=== PATIENT | female | born 1935 | race Caucasian/White ===

== ENCOUNTER 2016-07-21 10:08 | Emergency (ER) | payer MEDICARE, BC ==
[2016-07-21 10:43] LABS: Urine Bilirubin Negative (NEGATIVE); Urine Blood 25 /ul (NEGATIVE); Urine Ketone Negative (NEGATIVE); Urine Nitrite Negative (NEGATIVE); Urine Protein Negative (NEGATIVE); Urine Specific Gravity 1.015 SP.GR. (1.005-1.010); Urine Urobilinogen Normal (NORMAL); Urine pH 6.5 pH (5.0-7.0)
[2016-07-21] MEDS ORDERED: NORMAL SALINE 1,000 ML IV ONE (10:53)
[2016-07-21] MEDS ORDERED: ONDANSETRON HCL/PF 2 MG/ML VIAL IV ONE (10:53)
[2016-07-21] MEDS ORDERED: ONDANSETRON HCL/PF 2 MG/ML VIAL ONE (10:55)
--- NOTE | 2016-07-21 11:02 | ERNOTE ---
Medical Problem HPI - Narrative Date of Service: 07/21/16 - General Chief Complaint: Nausea/Vomiting Time Seen by Provider: 07/21/16 10:43 Source: patient, family, RN notes reviewed, old records Exam Limitations: no limitations - Immun/Allergies/Home Medications Immunizations: IMMUNIZATION HX Immunizations Up to Date Yes History of Influenza Vaccine Yes Allergies/Adverse Reactions: Allergies Penicillins Allergy (Verified 07/21/16 10:22) Sulfa (Sulfonamide Antibiotics) Allergy (Verified 07/21/16 10:22) Home Medications: HOME MEDICATIONS Albuterol Sulfate [Ventolin Hfa] 2 puff IH Q4H PRN 03/18/16 [Last Taken Unknown] Atenolol [Tenormin] 100 mg PO BID 03/18/16 [Last Taken Unknown] Clopidogrel Bisulfate [Plavix] 75 mg PO DAILY 03/18/16 [Last Taken Unknown] Fluticasone Propionate [Flovent Hfa] 2 puff IH BID 03/18/16 [Last Taken Unknown] Furosemide [Lasix] 60 mg PO DAILY 03/18/16 [Last Taken Unknown] Gemfibrozil [Lopid] 600 mg PO BID 03/18/16 [Last Taken Unknown] Glipizide 10 mg PO BID 03/18/16 [Last Taken Unknown] Omeprazole 20 mg PO DAILY 03/18/16 [Last Taken Unknown] Pioglitazone HCl 30 mg PO DAILY 03/18/16 [Last Taken Unknown] Pravastatin Sodium [Pravachol] 40 mg PO HS 03/18/16 [Last Taken Unknown] Ondansetron [Zofran Odt] 8 mg PO Q8H PRN #12 tab 07/21/16 [Last Taken Unknown] - History of Present History Narrative: Aydee is a 80 year old female brought to the ED by ambulance after a sudden onset of severe dizziness and vomiting. She reports waking up around 0300 this morning to go the the bathroom. She states she did not feel quite right at that time. She proceeded to go to her hair appointment this morning where she then became ill. She recently began having significantly more lower extremity edema than normal. This was determined to be related to moving into a different house with a water softener and having salt added to the water. Her lasix was increased on Sunday of this week and the edema improved. She was hospitalized last fall for vertigo , which she reports was similar to her current symptoms. She denies any sick contacts. She denies any diarrhea and states she had a normal bowel movement earlier this morning. Review of Systems - Review of Systems Constitutional: Present: malaise. Absent: recent illness, fever, chills EYE: Absent: blurred vision, double vision ENT: Absent: ear pain, nose congestion, sore throat Respiratory: Absent: shortness of breath, cough Cardiology: Present: edema. Absent: chest pain, palpitations, syncope Gastrointestinal/Abdominal: Present: nausea, vomiting, abdominal pain. Absent: diarrhea, constipation Genitourinary: Present: frequency. Absent: dysuria Musculoskeletal: Present: no symptoms reported Neurological: Present: headache, dizziness/light-headedness. Absent: weakness, numbness, pre-existing deficit Endocrine: Present: no symptoms reported Hematologic/Lymphatic: Absent: easy bruising, easy bleeding Psych: Present: no symptoms reported - Patient's Past Medical History Patient History - Medical: Diabetes Type 2, Obesity Patient History - Cardiac/Respiratory: Coronary Heart Disease, COPD, Hypertension, Hyperlipidemia, TIA Patient History - Cancer: No Hx of Cancer Patient History - Surgical Procedures: Cardiac stent, Hysterectomy, T & A, Other Patient History - Other: None LMP (females 10-50): Menopausal - Family History Mother Family History - Medical: Diabetes Type 2 - Social History Living Situations: spouse Abuse History: No History of abuse Psych History: No pertinent hx Does anyone smoke in the home?: No Smoking Status: Never smoker Alcohol Use: none Drug Use: none - Immunizations Immunizations Up to Date: Yes Hx Pneumococcal Vaccination: No History of Influenza Vaccine: Yes Physical Exam - Physical Exam General Appearance: Present: wd/wn, alert, mild distress, obese Eye Exam: Normal inspection: bilateral, PERRL: bilateral Ears, Nose, Throat: Present: hearing grossly normal Neck: Present: normal inspection, nontender, supple Respiratory: Present: no respiratory distress, normal breath sounds, no accessory muscle use, lungs clear Cardiovascular/Chest: Present: regular rate, rhythm, no murmur. Absent: normal peripheral pulses Peripheral Pulses: N=norm/S=strong/W=weak/B=bound/A=absent: Dorsalis-pedis (R): Weak, Dorsalis-pedis (L): Weak Gastrointestinal/Abdominal: Present: normal bowel sounds, soft, tenderness - diffuse throughout the right side, distended - obese Extremity Exam: Present: normal range of motion, pedal edema - mild, bilateral to just above ankles Neurological Exam: Present: alert, oriented, normal mood/affect, no motor/ sensory deficits Skin Exam: Present: warm/dry, pallor ED Progress - Results and Orders Patient's Lab Results:: I have reviewed the patient's lab results. - Vital Signs Patient's Vital Signs:: I have reviewed the patient's vital signs. Vital Signs: Vital Signs 07/21/16 07/21/16 10:11 10:47 Temperature 36.2 C L Pulse Rate 60 Respiratory 20 Rate Blood Pressure 112/58 O2 Sat by Pulse 95 Oximetry - Progress/Reassessment Chief Complaint: Nausea/Vomiting Progress:: Improved Plan - Plan Plan: Patient is feeling better after IVF bolus and Zofran. No further n/v. Reports mild dizziness, but states much better than earlier today. Unclear if symptoms are d/t viral illness or if this is another bout of the vertigo patient experienced last fall. Instructed to contact PCP on Sunday if she is still having dizziness and discussed possible vestibular rehab therapy. Rx for Zofran ODT prn. Departure - Departure Clinical Impression: Dizziness Vomiting Qualifiers: Vomiting type: unspecified Vomiting Intractability: non-intractable Nausea presence: with nausea Qualified Code(s): R11.2 - Nausea with vomiting, unspecified Disposition: Home Follow Up Needed Condition: Stable Instructions: Dizziness, [id number] Additional Instructions: Return to ER if symptoms worsen If dizziness persists, contact your doctor on Sunday Referrals: Mecca Iniguez MD [Staff Physician] - Prescriptions: Ondansetron [Zofran Odt] 8 mg PO Q8H PRN #12 tab PRN Reason: Nausea
[2016-07-21 11:11] LABS: Hematocrit 38.5 % (37.0-47.0); Hemoglobin 12.6 gm/dL (12.5-16.0); Mean Cell Volume 93.7 fl (78-100); Mean Corpuscular Hemoglobin 30.7 pg (27-31); Mean Corpuscular Hgb Conc 32.7 g/dl (32-36); Mean Platelet Volume 9.7 fl (6.0-9.5); Neutrophil # 4.2 K/mm3 (1.3-6.0); Neutrophil % 59.1 % (42-75.0); Platelet Count 226 K/mm3 (150-450); Red Blood Count 4.11 M/mm3 (4.2-5.4); Red Cell Distribution Width 13.1 % (11.5-14.0)
[2016-07-21 11:14] LABS: Urine Appearance Cloudy; Urine Color Yellow; Urine WBC None Seen /hpf (0-5)
[2016-07-21 11:15] LABS: Urine Bacteria None Seen; Urine Other Crystal TRACE /hpf; Urine RBC 0-5 /hpf (0-5)
--- OUTSIDE RECORDS SUMMARY | 2016-07-21 11:20 | XMS REPORT | Continuity of Care Document ---
:1935 Author Organization ([facility]) Address [address] [place] [address] Phone [phone] Care Team Providers Name Role Phone Unavailable Primary Care Provider Unavailable Source Comments This disclosure is being made pursuant to the Care Everywhere program, applicable federal and state laws, and may not contain all informaitonavailable regarding this patient. ([facility]) Active Allergies and Adverse Reactions Not on File Current Medications Not on file Active Problems Not on file Social History Tobacco Use Types Packs/Day Years Used Date Never Assessed Plan of Care Health Maintenance Due Date Last Done Comments Hepatitis B Vaccine (1 of 3 - Primary Series) 1935 Tdap Vaccine 1947 Lipid Disorder Screening 1954 Td Vaccine 1954 Mammogram 1976 Colonoscopy 1986 Zoster Vaccine 1996 Osteoporosis Screening (DXA Bone Density) 2001 Pneumococcal Vaccine (1 of 2 - PCV13) 2001 Influenza Vaccine: Seasonal (#1) 01/10/2016 Results from Last 3 Months Not on file
[2016-07-21 11:24] VITALS: BP 132/44
[2016-07-21 11:33] LABS: Albumin * 3.6 gm/dl (3.4-5.0); Anion Gap 10.4 mmol/L (6.8-13.8); Bilirubin, Total 0.5 mg/dL (0.0-1.1); Ca. Corrected For Albumin 9.2 mg/dL (8.4-10.2); Calcium * 9.2 mg/dL (7.9-10.9); Carbon Dioxide 33.3 mmol/L (24-32.6); Potassium 3.7 mmol/L (3.4-4.6); Total Protein 7.4 gm/dL (6.2-8.2)
[2016-07-21] MEDS ORDERED: ACETAMINOPHEN 325 MG TABLET PO ONE (11:45)
[2016-07-21] MEDS ORDERED: ACETAMINOPHEN 325 MG TABLET ONE (11:46)
== END 2016-07-21 13:04 | disposition home or self-care (01) ==
LOC: ER 10:08
DX: R42 Dizziness and giddiness (principal); R11.2 Nausea with vomiting, unspecified

== ENCOUNTER 2017-01-01 22:15 | Emergency (ER) | payer MEDICARE, BC ==
--- NOTE | 2017-01-01 23:04 | ERNOTE ---
Lower Extremity HPI - General Lower Extremities Pain: leg: left - increased swelling and pain Time Seen by Provider: 01/01/17 22:58 Source: patient Exam Limitations: no limitations - Immun/Allergies/Home Medications Immunizations: IMMUNIZATION HX Immunizations Up to Date Yes History of Influenza Vaccine Yes Hx Pneumococcal Vaccination No Allergies/Adverse Reactions: Allergies Allergy/AdvReac Type Severity Reaction Status Date / Time Penicillins Allergy Verified 07/21/16 10:22 Sulfa (Sulfonamide Allergy Verified 07/21/16 10:22 Antibiotics) Home Medications: HOME MEDICATIONS Albuterol Sulfate [Ventolin Hfa] 2 puff IH Q4H PRN 03/18/16 [Last Taken Unknown] Atenolol [Tenormin] 100 mg PO BID 03/18/16 [Last Taken Unknown] Clopidogrel Bisulfate [Plavix] 75 mg PO DAILY 03/18/16 [Last Taken Unknown] Fluticasone Propionate [Flovent Hfa] 2 puff IH BID 03/18/16 [Last Taken Unknown] Furosemide [Lasix] 60 mg PO DAILY 03/18/16 [Last Taken Unknown] Gemfibrozil [Lopid] 600 mg PO BID 03/18/16 [Last Taken Unknown] Omeprazole 20 mg PO DAILY 03/18/16 [Last Taken Unknown] Pioglitazone HCl 30 mg PO DAILY 03/18/16 [Last Taken Unknown] Pravastatin Sodium [Pravachol] 40 mg PO HS 03/18/16 [Last Taken Unknown] glipiZIDE [Glipizide] 10 mg PO BID 03/18/16 [Last Taken Unknown] Ondansetron [Zofran Odt] 8 mg PO Q8H PRN #12 tab 07/21/16 [Last Taken Unknown] - History of Present Illness Narrative: pt has been riding in the car for the past 2 days and only stopped approx 2 times each day to walk. both legs swollen a little more than usual but left much more than right Occurred: yesterday Method of Injury: Reports: other - long car ride Modifying Factors - (Worsens): Reports: movement Review of Systems - Review of Systems Constitutional: Absent: recent illness EYE: Present: no symptoms reported ENT: Present: no symptoms reported Respiratory: Absent: shortness of breath Cardiology: Absent: chest pain Gastrointestinal/Abdominal: Present: no symptoms reported Genitourinary: Present: no symptoms reported Musculoskeletal: Present: no symptoms reported Skin: Present: no symptoms reported Neurological: Present: no symptoms reported Endocrine: Present: no symptoms reported Hematologic/Lymphatic: Present: no symptoms reported Psych: Present: no symptoms reported - Patient's Past Medical History Patient History - Medical: Diabetes Type 2, Obesity Patient History - Cardiac/Respiratory: Coronary Heart Disease, CHF, COPD, Hypertension, Hyperlipidemia, TIA Patient History - Cancer: No Hx of Cancer Patient History - Surgical Procedures: Cardiac stent, Hysterectomy, T & A, Other Patient History - Other: None - Family History Mother Family History - Medical: Diabetes Type 2 - Social History Living Situations: home Abuse History: No History of abuse Psych History: No pertinent hx Does anyone smoke in the home?: No Smoking Status: Never smoker Alcohol Use: none Drug Use: none - Immunizations Immunizations Up to Date: Yes Hx Pneumococcal Vaccination: No History of Influenza Vaccine: Yes Physical Exam - Physical Exam General Appearance: Present: wd/wn, alert, mild distress Head Exam: Present: normal inspection, no evidence of injury Ears, Nose, Throat: Present: normal ENT inspection Respiratory: Present: no respiratory distress, no accessory muscle use, lungs clear Cardiovascular/Chest: Present: regular rate, rhythm, no murmur Back Exam: Present: normal inspection, normal range of motion Extremity Exam: Present: extremity edema - left > right left calf 55 cm right calf 47 cm Neurological Exam: Present: alert, oriented, normal mood/affect Skin Exam: Present: normal color, warm/dry ED Progress - Results and Orders Patient's Lab Results:: I have reviewed the patient's lab results. Results and Orders: Laboratory Tests 01/01/17 01/01/17 01/01/17 23:15 23:15 23:15 WBC 6.1 Hgb 11.8 L Hct 36.4 L Plt Count 241 D-Dimer 0.99 H Sodium 145 H Potassium 3.7 Chloride 105 Carbon Dioxide 30.1 Anion Gap 13.6 BUN 30 H Creatinine 1.69 H Est GFR (Non-Af Amer) 31 L D Random Glucose 185 H Calcium 8.7 B-Natriuretic Peptide 536 - Vital Signs Patient's Vital Signs:: I have reviewed the patient's vital signs. Vital Signs: Vital Signs 01/01/17 22:31 Temperature 36.5 C Pulse Rate 58 L Respiratory 18 Rate Blood Pressure 155/66 O2 Sat by Pulse 95 Oximetry - CT/Ultrasound CT/Ultrasound Narrative: LEFT LEG VENOUS DOPPLER: Findings: Exam shows good compressibility, adequate venous waveform, normal augmentation, and adequate color Doppler signal throughout. No intraluminal thrombus identified. Findings conveyed to emergency room personnel at 0113 hours by [facility]. IMPRESSION: NO DVT. Electronically signed by Jerome Mcwilliams M.D.. - Progress/Reassessment Chief Complaint: Lower Extremity Pain/ Injury Progress:: Unchanged Progress Note-Subjective: Pt given lasix 40mg x 3 to take home for the next 3 days. Departure Clinical Impression: Edema Qualifiers: Edema type: localized Qualified Code(s): R60.0 - Localized edema - Departure Disposition: Home Follow Up Needed Condition: Good Instructions: Edema, [id number] Additional Instructions: See Dr. Iniguez if not improving. Referrals: Mecca Iniguez MD [Primary Care Provider] -
[2017-01-01 23:24] LABS: Hematocrit 36.4 % (37.0-47.0); Hemoglobin 11.8 gm/dL (12.5-16.0); Mean Cell Volume 94.8 fl (78-100); Mean Corpuscular Hemoglobin 30.7 pg (27-31); Mean Corpuscular Hgb Conc 32.4 g/dl (32-36); Mean Platelet Volume 9.6 fl (6.0-9.5); Neutrophil # 2.7 K/mm3 (1.3-6.0); Neutrophil % 43.9 % (42-75.0); Platelet Count 241 K/mm3 (150-450); Red Blood Count 3.84 M/mm3 (4.2-5.4); Red Cell Distribution Width 13.5 % (11.5-14.0); White Blood Count 6.1 K/mm3 (4.0-10.5)
[2017-01-01 23:43] LABS: Anion Gap 13.6 mmol/L (6.8-13.8); BUN/Creatinine Ratio 17.8 (9.0-21.6); Calcium * 8.7 mg/dL (7.9-10.9); Carbon Dioxide 30.1 mmol/L (24-32.6); Estimated Creat Clear 22.9; Potassium 3.7 mmol/L (3.4-4.6)
[2017-01-02] MEDS ORDERED: FUROSEMIDE 40 MG TABLET ONE ×2 (02:16→02:20)
[2017-01-02 02:34] VITALS: BP 142/78
[2017-01-02] MEDS ORDERED: FUROSEMIDE 40 MG TABLET PO SCH (09:00)
== END 2017-01-02 02:32 | disposition home or self-care (01) ==
LOC: ER 22:15
DX: R60.0 Localized edema (principal); I11.0 Hypertensive heart disease with heart failure; I25.10 Atherosclerotic heart disease of native coronary artery without angina pectoris; I50.9 Heart failure, unspecified